=== PATIENT | male | born 1960 | race Caucasian/White ===

== ENCOUNTER → 2018-01-25 07:41 | Outpatient (CLI) | payer MEDICARE | END | disposition home or self-care (01) | LOC: D.MRI 07:41 | DX: M54.5 Low back pain (principal) ==

== ENCOUNTER 2021-01-28 17:44 | Emergency (ER) | payer MEDICARE ==
[~2021-01-28] VITALS: Ht 182.9 cm; Wt 79.1 kg
[2021-01-28 17:50] VITALS: Ht 182.9 cm; Wt 79.1 kg
[2021-01-28] MEDS ORDERED: PROTONIX40 MG PO ×2 (17:52→20:52)
[2021-01-28] MEDS ORDERED: ULTRAM50 MG PO (17:52)
[2021-01-28] MEDS ORDERED: CARAFATE1 G PO (17:53)
[2021-01-28] MEDS ORDERED: CALAN SR240 MG PO (17:53)
[2021-01-28 18:19] LABS: BASOPHILS 0.5 % (0-2); EOSINOPHILS 1.4 % (0-7); HEMATOCRIT 45.2 % (42.0-54.0); HEMOGLOBIN 15.9 g/dL (13.5-17.5); IMMATURE GRANULOCYTES 0.2 % (0-5); LYMPHOCYTE ABS# 1.94 10x3/uL (1.32-3.57); MCH 31.7 pg (26.0-34.0); MCHC 35.2 g/dL (31.0-37.0); MEAN PLATELET VOLUME 10.8 fL (7.4-10.4); MONOCYTES 9.7 % (2-11); NEUTROPHIL ABS# 7.55 10x3/uL (1.78-5.38); NEUTROPHILS 70.2 % (40-80); RBC 5.02 10x6/uL (4.20-6.10); RDW 13.6 % (11.5-14.5); WBC 10.8 10x3/uL (4.8-10.8)
[2021-01-28 18:24] LABS: CALC OSMOLALITY 277 mosm/kg (275-300); CALCIUM 9.3 mg/dL (8.5-10.1); CARBON DIOXIDE 31.6 mmol/L (21.0-32.0); CHLORIDE - SERUM 104 mmol/L (98-107); GLUCOSE 105 mg/dL (74-106); POTASSIUM - SERUM 3.7 mmol/L (3.5-5.1); SODIUM 140 mmol/L (136-145); UREA NITROGEN 10 mg/dL (7-18); eGFR NON AFRICAN AMERICAN 81 mL/min (90-120)
[2021-01-28 18:27] LABS: PLATELET COUNT 114 10x3/uL (130-400)
[2021-01-28 18:32] LABS: ALKALINE PHOSPHATASE 58 U/L (30-120); ALT (SGPT) 46 U/L (10-68); AMYLASE - SERUM 66 U/L (25-115); LIPASE 488 U/L (73-393); PROTEIN - SERUM 7.2 g/dL (6.4-8.2); TROPONIN-I < 0.017 ng/mL (0.000-0.060)
[2021-01-28 19:22] LABS: BILIRUBIN NEGATIVE (NEGATIVE); KETONE NEGATIVE (NEGATIVE); NITRITE NEGATIVE (NEGATIVE); UROBILINOGEN NORMAL mg/dL (< 2)
[2021-01-28 20:35] VITALS: BP 134/86
== END 2021-01-28 21:21 | disposition home or self-care (01) ==
LOC: D.ER 17:44
PROVIDERS: Family Medicine
DX: K29.70 Gastritis, unspecified, without bleeding (principal); R10.13 Epigastric pain